=== PATIENT | male | born 1990 | race Caucasian/White ===

== ENCOUNTER 2020-10-17 11:57 | Emergency (ER) | payer BC, SELFPAY ==
[2020-10-17 12:03] VITALS: BP 141/82; PULSE 83; RESP 16; TEMP 36.8; O2SAT 99
--- NOTE | 2020-10-17 12:11 | ED.SKABFB ---
HPI - Skin/Abscess/Foreign Bdy General Chief complaint: Wound/Laceration Stated complaint: POSSIBLE SPIDER BITE Time Seen by Provider: 10/17/20 12:11 Source: patient, RN notes reviewed and old records reviewed Mode of arrival: ambulatory Limitations: no limitations History of Present Illness HPI narrative: 30 year old male who presents to express care with complaints of bite to the right aspect of his neck which happened about 45 minutes ago. He states that he is concerned that it could of been a brown recluse spider because he has seen some brown spiders which he thinks are brown recluse spiders in his apartment building. He has red localized irritation to the right side of his neck which patient states is tender to palpation. Inner aspect of redness has raised size of dime tissue with no induration or drainage noted at area tender with some itching to skin. Patient denies any difficulty with his swallowing or any difficulty with his breathing. MD complaint: insect bite/sting Location: neck Related Data Allergies Allergy/AdvReac Type Severity Reaction Status Date / Time Penicillins Allergy Unknown rash Verified 10/17/20 12:05 Review of Systems Review of Systems: CONSTITUTIONAL: Denies fever, chills, or sweats. EYES: Denies visual changes, redness, or discharge. ENT: Denies rhinorrhea, congestion, sore throat, or otalgia. CARDIOVASCULAR: Denies chest pain, palpitations, or edema. RESPIRATORY: Denies cough or dyspnea. GASTROINTESTINAL: Denies abdominal pain, nausea, vomiting, or diarrhea. GENITOURINARY: Denies dysuria or hematuria. SKIN: Localized red irritated swollen area to right side of his neck from bite with raised center size of dime some discomfort and itching. MUSCULOSKELETAL: Denies back pain, joint pain, or myalgia. NEUROLOGIC: Denies headache, numbness, or weakness. PSYCHIATRIC: Denies anxiety or depression. All systems reviewed & are unremarkable except as noted in HPI and below PMFSH Past Medical History Medical History (Updated 10/17/20 @ 13:17 by Jess Andres NP) History of sinus problem Surgical History Surgical History (Updated 10/17/20 @ 13:18 by Jess Andres NP) H/O adenoidectomy H/O sinus surgery Family History Family History (Updated 10/17/20 @ 13:18 by Jess Andres NP) Grandparent Diabetes mellitus Social History Social History (Updated 10/17/20 @ 13:19 by Jess Andres NP) Smoking packs per day: 0.5 Smoking cigarettes per day: 10.0 Years smoked: 11 Smoking pack-years: 5.50 Smoking status: Current every day smoker Tobacco type: cigarettes Alcohol intake: current Alcohol use details: social Substance use: never Living arrangements: with roommate(s) Gender identity (if verbalized by the patient): Male Comments At time of signature, agree with nursing past medical, surgical, social and family history. There is no relevant family history pertinent to the presenting complaint Exam Narrative: GENERAL: Well-appearing, well-nourished, and in no acute distress. HEAD: Normocephalic, atraumatic. EYES: PERRLA and EOMI. ENT: Nares clear, no rhinorrhea or epistaxis. Mucous membranes moist. NECK: Supple. no lymphadenopathy CHEST: Clear to auscultation. No respiratory distress.SAO2 99% on room air HEART: Regular rate and rhythm. No murmur heard. Normal peripheral pulses. ABDOMEN: Soft, nontender, nondistended, normal active bowel sounds. EXTREMITIES: Normal range of motion. No edema. SKIN: Warm, dry, red irritated area to the right side of his neck with center dime size area of raised tissue with no induration or drainage, tenderness and itching to site, NEURO: No focal deficits. Alert and oriented x3. Course Vital Signs Vital signs: Vital Signs Temperature 36.8 C 10/17/20 12:03 Pulse Rate 83 10/17/20 12:03 Respiratory Rate 16 10/17/20 12:03 Blood Pressure 141/82 H 10/17/20 12:03 Pulse Oximetry 99 10/17/20 12:03 Temperature 36
== END 2020-10-17 12:33 | disposition home or self-care (01) ==
PROVIDERS: Emergency Provider Registered Nurse; PCP Nurse Practitioner Family
DX: S10.96XA Insect bite of unspecified part of neck, initial encounter (principal); W57.XXXA Bitten or stung by nonvenomous insect and other nonvenomous arthropods, initial encounter
CPT/HCPCS: 99213; G0463

== ENCOUNTER 2021-01-08 12:04 | Emergency (ER) | payer OTHER, BC, SELFPAY ==
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
[2021-01-08 12:15] VITALS: BP 128/81; PULSE 63; RESP 16; TEMP 36.6; O2SAT 99
== END 2021-01-08 12:30 | disposition home or self-care (01) ==
PROVIDERS: Emergency Provider Nurse Practitioner; PCP Nurse Practitioner Family
DX: S29.012A Strain of muscle and tendon of back wall of thorax, initial encounter (principal); X58.XXXA Exposure to other specified factors, initial encounter; S16.1XXA Strain of muscle, fascia and tendon at neck level, initial encounter; V49.60XA Unspecified car occupant injured in collision with unspecified motor vehicles in traffic accident, initial encounter; F17.210 Nicotine dependence, cigarettes, uncomplicated
CPT/HCPCS: 99213; G0463

== ENCOUNTER 2021-04-15 11:17 | Emergency (ER) | payer BC, SELFPAY ==
[2021-04-15 11:23] VITALS: BP 118/73; PULSE 60; RESP 12; TEMP 36.3; O2SAT 99
--- NOTE | 2021-04-15 11:23 | ED.URI ---
HPI - URI/Sore Throat General Chief Complaint: Upper Respiratory Infection Stated Complaint: Sore throat Time Seen by Provider: 04/15/21 11:27 Source: patient and RN notes reviewed Mode of arrival: ambulatory Limitations: no limitations History of Present Illness HPI Narrative: 31-year-old male presents with concern for sore throat. Reports symptoms started yesterday. He reports swollen tonsils with white spots. He reports nasal congestion. Reports nasal congestion is relieved with Mucinex D. He denies fever, body aches, chills, sweats, shortness of breath. Reports occasional cough. He denies any known sick exposure MD elicited complaint: sore throat and nasal congestion Related Data Allergies Allergy/AdvReac Type Severity Reaction Status Date / Time Penicillins Allergy Unknown rash Verified 04/15/21 11:24 Review of Systems Review of Systems: CONSTITUTIONAL: Denies malaise, chills, sweats, or fever. EYES: Denies visual changes, redness, or discharge. ENT: Reports sore throat, congestion. Denies rhinorrhea sinus pain, otalgia CARDIOVASCULAR: Denies chest pain, palpitations, or edema. RESPIRATORY: Reports occasional cough. Denies dyspnea. GASTROINTESTINAL: Denies abdominal pain, nausea, vomiting, diarrhea SKIN: Denies rash or itching. MUSCULOSKELETAL: Denies myalgia. NEUROLOGIC: Denies headache. All systems reviewed & are unremarkable except as noted in HPI and below PMFSH Past Medical History Medical History (Updated 04/15/21 @ 11:43 by Catherine Real NP) History of sinus problem Surgical History Surgical History (Updated 10/17/20 @ 13:18 by Jess Andres NP) H/O adenoidectomy H/O sinus surgery Family History Family History (Updated 10/17/20 @ 13:18 by Jess Andres NP) Grandparent Diabetes mellitus Social History Social History (Updated 10/17/20 @ 13:19 by Jess Andres NP) Smoking packs per day: 0.5 Smoking cigarettes per day: 10.0 Years smoked: 11 Smoking pack-years: 5.50 Smoking status: Current every day smoker Tobacco type: cigarettes Alcohol intake: current Alcohol use details: social Substance use: never Gender identity (if verbalized by the patient): Male Comments At time of signature, agree with nursing past medical, surgical, social and family history. There is no relevant family history pertinent to the presenting complaint Exam Narrative: GENERAL: Well-appearing, well-nourished, and in no acute distress. HEAD: Normocephalic EYES: PERRLA, conjunctivae clear ENT: Nares clear, turbinates edematous clear discharge. Mucous membranes moist. TM pearly mckinley with sharp light reflex bilaterally; no tragal tenderness. Oropharynx erythematous without lesions. Tonsils enlarged and with white exudate, no drooling, no hoarseness, no trismus, uvula midline. NECK: Supple. No lymphadenopathy CHEST: Clear to auscultation, breath sounds equal. No wheezing, rhonchi, rales, or stridor. No respiratory distress, speaks in full sentences. HEART: Regular rate and rhythm. No murmur heard. SKIN: Warm, dry, no rash. NEURO: Alert and oriented x3. PSYCH: Normal mood and affect Course Course Emergency Course: Patient does not have history of IgE mediated reaction to penicillin. Patient is aware of diagnosis, understands and agrees to treatment plan. Anticipatory guidance given. Patient agrees to follow-up as directed and is aware of reasons to seek care at the emergency department. Portions of this record may have been created with voice recognition software Level of Care: Express Care Visit Vital Signs Vital signs: Reviewed. MDM - URI/Sore Throat MDM Narrative Medical decision making narrative: Differential diagnosis considered: James virus, strep pharyngitis, allergic rhinitis, upper respiratory tract infection, sinusitis, rhinosinusitis, nasopharyngitis. viral pharyngitis, otitis media, otitis externa, pneumonia, bronchitis, viral cough syndrome, viral syndrome, and i
== END 2021-04-15 11:47 | disposition home or self-care (01) ==
PROVIDERS: Emergency Provider Nurse Practitioner; PCP Nurse Practitioner Family
DX: J02.0 Streptococcal pharyngitis (principal); F17.210 Nicotine dependence, cigarettes, uncomplicated
CPT/HCPCS: 87880; 99213; G0463

== ENCOUNTER 2021-05-04 10:26 | Emergency (ER) | payer BC, SELFPAY ==
--- NOTE | ~2021-05-04 | XR_ITS ---
EXAMINATION: XR chest 2V EXAM DATE: 05/04/2021 11:24 INDICATION: Cough, spit up blood. TECHNIQUE: Frontal and lateral projections of the chest obtained and reviewed. There is no prior rishi dy for comparison. FINDINGS: The lungs are clear. There are no pleural effusions. The cardiomediastinal silhouette is within normal limits. There is no pneumothorax suspected. The bones and soft tissues are unremarkab le. IMPRESSION: Normal chest x-ray exam. Reviewed, dictated and finalized at location [facility] IMPRESSION: Normal chest x-ray exam.
[2021-05-04 10:38] VITALS: BP 110/87; PULSE 90; RESP 16; TEMP 36.9; O2SAT 100
--- NOTE | 2021-05-04 10:48 | ED.URI ---
HPI - URI/Sore Throat General Chief Complaint: Upper Respiratory Infection Stated Complaint: Sore throat Time Seen by Provider: 05/04/21 10:48 Source: patient Mode of arrival: ambulatory Limitations: no limitations History of Present Illness HPI Narrative: 31 yo M presents with c/o sore throat. Recently had strep and only took 4 days of antibiotics because he was feeling better. Also reports coughed up blood one time and totally freaked me out . stopped smoking. has been smoking for 15 yrs. pt now very anxious. has been breaking out in hives. thinks he has lung CA. has not coughed or spit up any blood since the one time. Denies SOB. is not using any patches or gum to quit smoking, stopped 'cold turkey All systems reviewed and negative except as noted above. Related Data Allergies Allergy/AdvReac Type Severity Reaction Status Date / Time Penicillins Allergy Unknown rash Verified 04/15/21 11:24 Review of Systems Review of Systems: CONSTITUTIONAL: Denies fever, chills, or sweats. EYES: Denies visual changes, redness, or discharge. ENT: Denies rhinorrhea, congestion. Reports sore throat. Denies otalgia. CARDIOVASCULAR: Denies chest pain, palpitations, or edema. RESPIRATORY: Denies cough or dyspnea. GASTROINTESTINAL: Denies abdominal pain, nausea, vomiting, or diarrhea. GENITOURINARY: Denies dysuria or hematuria. SKIN: Reports hives. MUSCULOSKELETAL: Denies back pain, joint pain, or myalgia. NEUROLOGIC: Denies headache, numbness, or weakness. PSYCHIATRIC: Reports anxiety All other systems reviewed are negative, except as documented in HPI. [facility] Past Medical History Medical History (Updated 05/04/21 @ 11:34 by Shayy Villegas NP) History of sinus problem Surgical History Surgical History (Updated 10/17/20 @ 13:18 by Jess Andres NP) H/O adenoidectomy H/O sinus surgery Family History Family History (Updated 10/17/20 @ 13:18 by Jess Andres NP) Grandparent Diabetes mellitus Social History Social History (Updated 10/17/20 @ 13:19 by Jess Andres NP) Smoking packs per day: 0.5 Smoking cigarettes per day: 10.0 Years smoked: 11 Smoking pack-years: 5.50 Smoking status: Current every day smoker Tobacco type: cigarettes Alcohol intake: current Alcohol use details: social Substance use: never Gender identity (if verbalized by the patient): Male Comments At time of signature, agree with nursing past medical, surgical, social and family history. There is no relevant family history pertinent to the presenting complaint. Exam Narrative: GENERAL: This is a well-nourished, well-developed patient, in no apparent distress. HEAD: normocephalic, atraumatic. EYES: PERRL. Sclera clear/white. Vision is grossly intact. EARS: External ears normal, auditory canals clear and without drainage, TMs normal without perforation. Hearing grossly intact. NOSE: External nose normal with no obvious nasal discharge, nares without redness, no rhinorrhea. THROAT: Mucous membranes moist. Posterior pharynx is erythematous with swelling. Bilateral tonsils are not enlarged. No exudates. NECK: Neck supple, non-tender without lymphadenopathy, masses or thyromegaly. CARDIOVASCULAR: Regular rate and rhythm without murmurs, gallops, or rubs. RESPIRATORY: Clear to auscultation. Breath sounds equal bilaterally. No wheezes, rales, or rhonchi. GASTROINTESTINAL: Abdomen soft, non-tender, nondistended. Bowel sounds are active. No hepato-splenomegaly, or palpable masses. No guarding. SKIN: warm, Dry, intact with good texture and turgor. Erythematous hive-like rash to patient's scalp and bilateral shoulders. NEURO: awake, alert, and oriented to person, place and time. There were no obvious focal neurologic abnormalities. EXTREMITIES: No joint tenderness, effusion, or edema noted. No calf tenderness. Negative Homans sign bilaterally. BACK: Nontender without deformity. No CVA tenderness. Course Course Emergency C
== END 2021-05-04 11:48 | disposition home or self-care (01) ==
PROVIDERS: Emergency Provider Nurse Practitioner Family; PCP Nurse Practitioner Family
DX: J02.0 Streptococcal pharyngitis (principal); F41.9 Anxiety disorder, unspecified; F17.213 Nicotine dependence, cigarettes, with withdrawal
CPT/HCPCS: 71046; 87880; 99213; G0463

== ENCOUNTER 2022-01-21 12:57 | Emergency (ER) | payer BC, SELFPAY ==
--- NOTE | 2022-01-21 12:59 | ED.URI ---
HPI - URI/Sore Throat General Chief Complaint: Upper Respiratory Infection Stated Complaint: pt requests covid, flu and strep Time Seen by Provider: 01/21/22 13:12 Source: patient and RN notes reviewed Mode of arrival: ambulatory Limitations: no limitations History of Present Illness HPI Narrative: 31-year-old male presents concern for cough, sore throat, head congestion. Reports throat pain is 6/10. Reports he has taking Mucinex D. He reports his roommate is sick. MD elicited complaint: cough and sore throat Related Data Home Medications Medication Instructions Recorded Confirmed rosuvastatin 10 mg tablet 10 mg PO DAILY 01/21/22 01/21/22 Allergies Allergy/AdvReac Type Severity Reaction Status Date / Time Penicillins Allergy Unknown rash Verified 01/21/22 13:06 Review of Systems Review of Systems: CONSTITUTIONAL: Reports malaise, chills, sweats, or fever. EYES: Denies visual changes, redness, or discharge. ENT: Reports rhinorrhea, congestion, sore throat. Today sinus pain, otalgia CARDIOVASCULAR: Denies chest pain, palpitations, or edema. RESPIRATORY: Reports cough. Denies dyspnea. GASTROINTESTINAL: Denies abdominal pain, nausea, vomiting, diarrhea SKIN: Denies rash or itching. MUSCULOSKELETAL: Denies myalgia. NEUROLOGIC: Denies headache. All systems reviewed & are unremarkable except as noted in HPI and below PMFSH Past Medical History Medical History (Updated 01/21/22 @ 13:35 by Catherine Real NP) History of sinus problem Surgical History Surgical History (Updated 10/17/20 @ 13:18 by Jess Andres NP) H/O adenoidectomy H/O sinus surgery Family History Family History (Updated 10/17/20 @ 13:18 by Jess Andres NP) Grandparent Diabetes mellitus Social History Social History (Updated 10/17/20 @ 13:19 by Jess Andres NP) Smoking packs per day: 0.5 Smoking cigarettes per day: 10.0 Years smoked: 11 Smoking pack-years: 5.50 Smoking status: Current every day smoker Tobacco type: cigarettes Alcohol intake: current Alcohol use details: social Substance use: never Gender identity (if verbalized by the patient): Male Comments At time of signature, agree with nursing past medical, surgical, social and family history. There is no relevant family history pertinent to the presenting complaint Exam Narrative: GENERAL: Well-appearing, well-nourished, and in no acute distress. HEAD: Normocephalic EYES: PERRLA, conjunctivae clear ENT: Nares clear, clear discharge. Mucous membranes moist. TM pearly mckinley with sharp light reflex bilaterally; no tragal tenderness. Oropharynx erythematous without lesions. Tonsils not enlarged and without exudate, no drooling, no hoarseness, no trismus, uvula midline. NECK: Supple. No lymphadenopathy CHEST: Clear to auscultation, breath sounds equal. No wheezing, rhonchi, rales, or stridor. No respiratory distress, speaks in full sentences. HEART: Regular rate and rhythm. No murmur heard. SKIN: Warm, dry, no rash. NEURO: Alert and oriented x3. PSYCH: Normal mood and affect Course Course Emergency Course: Patient is aware of diagnosis, understands and agrees to treatment plan. Anticipatory guidance given. Patient agrees to follow-up as directed and is aware of reasons to seek care at the emergency department. Portions of this record may have been created with voice recognition software Level of Care: Express Care Visit Vital Signs Vital signs: Reviewed. MDM - URI/Sore Throat MDM Narrative Medical decision making narrative: Differential diagnosis considered: James virus, strep pharyngitis, allergic rhinitis, upper respiratory tract infection, sinusitis, rhinosinusitis, nasopharyngitis. viral pharyngitis, otitis media, otitis externa, pneumonia, bronchitis, viral cough syndrome, viral syndrome, and influenza. Exam findings show no acute concerns or changes; patient is non-toxic appearing and is in no distress. Patient is appropr
[2022-01-21 13:05] VITALS: BP 145/103; PULSE 81; RESP 16; TEMP 37.3; O2SAT 99
== END 2022-01-21 13:43 | disposition home or self-care (01) ==
PROVIDERS: Emergency Provider Nurse Practitioner; PCP Nurse Practitioner Family
DX: J06.9 Acute upper respiratory infection, unspecified (principal); F17.210 Nicotine dependence, cigarettes, uncomplicated; Z20.822 Contact with and (suspected) exposure to COVID-19
CPT/HCPCS: 87081; 87426; 87804; 87880; 99213; C9803; G0463

== ENCOUNTER 2022-05-11 13:09 | Emergency (ER) | payer BC, SELFPAY ==
[2022-05-11 13:14] VITALS: BP 157/97; PULSE 114; RESP 16; TEMP 36.6; O2SAT 100
--- NOTE | 2022-05-11 13:23 | ED.URI ---
HPI - URI/Sore Throat General Chief Complaint: Upper Respiratory Infection Stated Complaint: SORE THROAT Time Seen by Provider: 05/11/22 13:16 Source: patient Mode of arrival: ambulatory Limitations: no limitations History of Present Illness HPI Narrative: Patient is a 32-year-old male who presents with congestion, sore throat, cough for 3 days. Denies any fevers, chills, ear pain. Has been taking cough medicine at home without relief. Reports sore throat is 6/10. Related Data Home Medications Medication Instructions Recorded Confirmed rosuvastatin 10 mg tablet 10 mg PO DAILY 01/21/22 05/11/22 Allergies Allergy/AdvReac Type Severity Reaction Status Date / Time Penicillins Allergy Unknown rash Verified 05/11/22 13:20 Review of Systems Review of Systems: All systems reviewed & are unremarkable except as noted in HPI and below Constitutional: Constitutional: Denies body ache(s), Denies fever(s), Denies headache(s), Denies malaise and Denies weakness Eyes: Eyes: Denies loss of vision ENT: Denies otalgia, Denies headache(s), Reports nasal congestion, Denies sinus pain and Reports sore throat Cardiovascular: Cardiovascular: Denies chest pain, Denies irregular heart rhythm and Denies dyspnea Respiratory: Respiratory: Reports cough and Denies dyspnea Gastrointestinal: Gastrointestinal: Denies abdominal pain, Denies melena, Denies hematochezia, Denies diarrhea, Denies nausea and Denies vomiting Musculoskeletal: Musculoskeletal: Denies back pain, Denies myalgias and Denies arthralgias Integumentary/Breasts: Skin/Breast: Denies pruritus and Denies rash Neurologic: Denies headache(s), Denies loss of vision and Denies weakness Psychiatric: Psychiatric: Reports no additional psychiatric complaints PMF Past Medical History Medical History (Updated 05/11/22 @ 13:28 by Negar Olson APRN) History of sinus problem Surgical History Surgical History (Updated 10/17/20 @ 13:18 by Jess Andres NP) H/O adenoidectomy H/O sinus surgery Family History Family History (Updated 10/17/20 @ 13:18 by Jess Andres NP) Grandparent Diabetes mellitus Social History Social History (Updated 10/17/20 @ 13:19 by Jess Andres NP) Smoking packs per day: 0.5 Smoking cigarettes per day: 10.0 Years smoked: 11 Smoking pack-years: 5.50 Smoking status: Current every day smoker Tobacco type: cigarettes Alcohol intake: current Alcohol use details: social Substance use: never Living arrangements: with roommate(s) Gender identity (if verbalized by the patient): Male Comments At time of signature, agree with nursing past medical, surgical, social and family history. There is no relevant family history pertinent to the presenting complaint. Exam Const: General: cooperative, healthy appearing, comfortable, no acute distress and well nourished Nutritional Appearance: well nourished Orientation/consciousness: patient oriented x3 Limitations: no limitations HENMT: Head: normal to inspection, normocephalic and atraumatic Ears: hearing grossly normal bilaterally, external ears normal and TM's normal bilaterally Face/Nose/Sinus: Normal external nose present, Normal nares present, Normal nasal mucous membranes and turbinates present, Normal septum present, normal facial exam, sinuses nontender and face symmetric Face and sinus: normal facial exam, sinuses nontender and face symmetric Mouth: Yes Normal oral and palatal mucosa present, Yes lip normal and Yes moist mucous membranes Teeth and gingiva: dentition normal Throat: uvula midline, abnormal tonsil bilateral erythema, exudates and other (3+ ), posterior oropharynx abnormal edema, erythema and exudates and postnasal drainage Eyes: General: appearance normal, both eyes and all related structures Alignment and Position: alignment normal and position normal Periorbital: periorbital findings normal Eyelids: eyelids normal Pupils: Equal, round a
== END 2022-05-11 13:35 | disposition home or self-care (01) ==
PROVIDERS: Emergency Provider Nurse Practitioner Family; PCP Nurse Practitioner Family
DX: J03.80 Acute tonsillitis due to other specified organisms (principal); B96.89 Other specified bacterial agents as the cause of diseases classified elsewhere; F17.210 Nicotine dependence, cigarettes, uncomplicated
CPT/HCPCS: 87081; 87880; 99213; G0463

== ENCOUNTER 2025-01-01 09:35 | Emergency (ER) | payer BC, SELFPAY ==
[2025-01-01 09:49] VITALS: BP 139/90; PULSE 101; RESP 16; TEMP 36.4; O2SAT 99
--- NOTE | 2025-01-01 10:19 | ED.BACK ---
HPI - Back Pain/Injury General Chief Complaint: Back Pain/Injury Stated Complaint: Back Pain Time Seen by Provider: 01/01/25 10:19 Source: patient Mode of arrival: ambulatory Limitations: no limitations History of Present Illness HPI Narrative: 34 yo M presents with c/o low back pain and muscle spasms for 2 to 3 wks. Feels pain around left SI joint. Denies injury. Started new job and sitting more than usual. Taking ibuprofen to treat pain. Had first visit with chiropractor yesterday. No radiation of pain to LEs. No loss of bowel or bladder. No numbness/tingling or weakness. States muscle spasm last several minutes. Whole body tense and pain severe. All systems reviewed and negative except as noted above. Related Data Home Medications ?Medication ?Instructions ?Recorded ?Confirmed ?Last Taken ?Type rosuvastatin 10 mg tablet 10 mg PO DAILY 01/21/22 01/01/25 Unknown History Allergies Allergy/AdvReac Type Severity Reaction Status Date / Time Penicillins Allergy Unknown rash Verified 01/01/25 09:46 [facility] Past Medical History Medical History (Updated 01/02/25 @ 00:00 by Andres Larose) History of sinus problem Surgical History Surgical History (Updated 10/17/20 @ 13:18 by Jess Andres APRN) H/O sinus surgery H/O adenoidectomy Family History Family History (Updated 10/17/20 @ 13:18 by Jess Andres APRN) Grandparent Diabetes mellitus Social History Social History (Updated 10/17/20 @ 13:19 by Jess Andres APRN) Smoking packs per day: 0.5 Smoking cigarettes per day: 10.0 Years smoked: 11 Smoking pack-years: 5.50 Smoking status: Current every day smoker Tobacco type: cigarettes Alcohol intake: current Alcohol use details: social Substance use: never Living arrangements: with roommate(s) Gender identity (if verbalized by the patient): Male Comments At time of signature, agree with nursing past medical, surgical, social and family history. There is no relevant family history pertinent to the presenting complaint. Exam Narrative: GENERAL: This is a well-nourished, well-developed patient, in no apparent distress. HEAD: normocephalic, atraumatic. EYES: PERRL. Sclera clear/white. Vision is grossly intact. EARS: External ears normal NOSE: External nose normal NECK: Neck supple, non-tender without lymphadenopathy, masses or thyromegaly. CARDIOVASCULAR: Regular rate and rhythm without murmurs, gallops, or rubs. RESPIRATORY: Clear to auscultation. Breath sounds equal bilaterally. No wheezes, rales, or rhonchi. SKIN: warm, Dry, intact with no suspicious lesions or rash, good texture and turgor. NEURO: awake, alert, and oriented to person, place and time. There were no obvious focal neurologic abnormalities. EXTREMITIES: No joint tenderness, effusion, or edema noted. No calf tenderness. Negative Homans sign bilaterally. BACK: no midline tenderness. tender L SI on palpation. LE strength 5/5 bilateral. normal gait. Course Course Level of Care: [facility] Visit Vital Signs Vital signs: Vital Signs Temperature 36.4 C L 01/01/25 09:49 Pulse Rate 101 H 01/01/25 09:49 Respiratory Rate 16 01/01/25 09:49 Blood Pressure 139/90 01/01/25 09:49 Pulse Oximetry 99 01/01/25 09:49 Temperature 36.4 C L 01/01/25 09:49 Pulse Rate 101 H 01/01/25 09:49 Respiratory Rate 16 01/01/25 09:49 Blood Pressure 139/90 01/01/25 09:49 Pulse Oximetry 99 01/01/25 09:49 reviewed MDM - Back Pain/Injury MDM Narrative Medical decision making narrative: offered x-ray of lumbar spine but pt did not feel was necessary. not able to treat pain with toradol at [facility] due to recently taking ibuprofen. Pt alert, nontoxic. no neuro deficits. Will treat with prednisone, muscle relaxant. Continue ibuprofen. given back stretches. Continue chiropractic appointments. has appt with new PCP in 1 month. Differential Diagnosis Differential diagnosis: Likely lumbar radiculopathy, sciatica and strain of lumbar region Discharge Plan Discharge Clinical Impression: Strain of lumbar region Patient Disposition: Home Condition: Stable Instructions: Low Back Strain (ED), Lower Back Exercises (ED) Additional Instructions: Take medications as prescribed. Methocarbamol as a muscle relaxant may cause drowsiness. Do not drive while taking this medication. Alternate between ice and heat. Do stretching exercises found in discharge packet as tolerated. Follow-up with your primary care physician if symptoms are not improving. If you have severe pain, loss of bowel or bladder, weakness to lower extremities go to the ER. Patient Language: Spanish Prescriptions: New ibuprofen 800 mg tablet 800 mg PO Q6-8H PRN (Reason: pain) Qty: 30 0RF prednisone 20 mg tablet See Rx Instructions .ROUTE .COMPLEX Qty: 12 0RF Rx Instructions: Take 3 tablets today, then 2 tablets daily for 3 days then 1 tablet daily for 3 days. methocarbamol 750 mg tablet 750 mg PO Q8H PRN (Reason: muscle pain/spasm) Qty: 30 0RF No Action rosuvastatin 10 mg tablet 10 mg PO DAILY Follow-up/Referrals: Eric Dobbs MD [Primary Care Provider, Family Practice] Stand Alone Forms: Work/School Release IP Time of Disposition: 10:37
== END 2025-01-01 10:41 | disposition home or self-care (01) ==
PROVIDERS: Emergency Provider Nurse Practitioner Family; PCP Family Medicine
DX: S39.012A Strain of muscle, fascia and tendon of lower back, initial encounter (principal); X58.XXXA Exposure to other specified factors, initial encounter; F17.210 Nicotine dependence, cigarettes, uncomplicated
CPT/HCPCS: 99213; G0463